=== PATIENT | male | born 1960 | race Caucasian/White ===

== ENCOUNTER → 2019-11-27 08:10 | Outpatient (CLI) | payer OTHER ==
[2012-12-20 14:22] VITALS: BMI 29.4
[~2019-11-27 08:10] MED LIST: EDARBI PO; FISH OIL 1,2001 CA1 PO; METOPROLOL TAR100 MG GT; MEVACOR40 MG PO; MULTI-DAY VITAM1 TAB PO; NORCO 10/325 TA1 TA1 PO; NORCO 5/325 TAB1 TA1 PO; [UNRECOGNIZED DRUG - OTHER]
== END | disposition home or self-care (01) ==
LOC: D.CT 08:10
PROVIDERS: ATTEND Family Medicine
DX: R10.9 Unspecified abdominal pain (principal); R19.7 Diarrhea, unspecified